=== PATIENT | male | born 1940 | race Caucasian/White ===

== ENCOUNTER 2019-08-08 03:31 | Inpatient (IN) | payer OTHER ==
[~2019-08-08] VITALS: Ht 182.9 cm; Wt 81.4 kg
[2019-08-08] MEDS ORDERED: DILTIAZEM 125 MG in SODIUM CHLORIDE 0.9% 100 ML IV SCH (03:41)
[2019-08-08] MEDS ORDERED: DILTIAZEM 5 MG/ML, 5ML ONE (03:52)
[2019-08-08] MEDS ORDERED: CEFTRIAXONE PMX 1GM/50ML 50 ML IVPB ONE (04:00)
[2019-08-08] MEDS ORDERED: SODIUM CHLORIDE FLUSH 10ML SYR IVF ONE (04:00)
[2019-08-08] MEDS ORDERED: DILTIAZEM 5 MG/ML, 5ML IV ONE (04:00)
[2019-08-08] MEDS ORDERED: AZITHROMYCIN 500 MG in SODIUM CHLORIDE 0.9% 250 ML IV ONE (04:00)
[2019-08-08 04:01] LABS: BASOPHILS # (AUTO) 0.02 x10^3/uL (0-0.1); BASOPHILS % (AUTO) 0 % (0-1); EOSINOPHILS % (AUTO) 4 % (1-7); LYMPHOCYTES # (AUTO) 0.93 x10^3/uL (1-3.4); LYMPHOCYTES % (AUTO) 12 % (22-44); MD NO; MEAN CORPUSCULAR HEMOGLOBIN 32.9 pg (27.5-34.5); MEAN CORPUSCULAR HGB CONC 33.1 g/dL (33.2-36.2); MEAN CORPUSCULAR VOLUME 99.6 fL (81-97); MEAN PLATELET VOLUME 8.9 fL (7.4-10.4); MONOCYTES % (AUTO) 15 % (2-9); NEUTROPHILS # (AUTO) 5.69 x10^3/uL (1.8-6.8); NEUTROPHILS % (AUTO) 70 % (42-75); PLATELET COUNT 197 x10^3/uL (130-400); RED BLOOD COUNT 4.43 x10^6/uL (4.38-5.82)
--- NOTE | 2019-08-08 04:06 | NUR ---
cardizem ivp per md order pt hr slowed to 80 a fib
[2019-08-08 04:08] LABS: INTERNATIONAL NORMALIZED RATIO 1.14 (0.93-1.1); PROTHROMBIN TIME 11.9 Seconds (9.6-11.5)
[2019-08-08 04:10] LABS: ALANINE AMINOTRANSFERASE 29 U/L (12-78); ALBUMIN 3.3 g/dL (3.4-5.0); ANION GAP 7 mmol/L (5-15); CALCIUM 9.3 mg/dL (8.5-10.1); CHLORIDE 99 mmol/L (98-107); CREATININE 1.14 mg/dL (0.7-1.3)
[2019-08-08] MEDS ORDERED: CEFTRIAXONE PMX 1GM/50ML 50 ML ONE (04:12)
[2019-08-08 04:14] LABS: ALKALINE PHOSPHATASE 173 U/L (45-117); BILIRUBIN,TOTAL 1.9 mg/dL (0.2-1.0); TOTAL PROTEIN 7.6 g/dL (6.4-8.2); TROPONIN I < 0.015 ng/mL (0.000-0.045)
[2019-08-08] MEDS ORDERED: FUROSEMIDE 40 MG/4 ML ONE (04:56)
[2019-08-08] MEDS ORDERED: FUROSEMIDE 40 MG/4 ML IV ONE (05:00)
--- NOTE | 2019-08-08 05:12 | NUR ---
pt sat 89% on hi flow o2 at 100% 45l, pt to be placed on bipap at this time
--- NOTE | 2019-08-08 05:13 | NUR ---
awaiting admit to icu
--- NOTE | 2019-08-08 05:30 | NUR ---
PT WAS NOT PLACED ON BIPAP. RESP TH TO MONITOR NEED PT SATS 89 TO 93% ON CURRENT HIFLOW NC
--- NOTE | 2019-08-08 06:38 | NUR ---
REPORT TO [facility] PT TO CCU WITH THIS RN AND TECH ON MONITOR
[2019-08-08] MEDS ORDERED: FUROSEMIDE 20 MG/2 ML IV SCH (08:00)
[2019-08-08] MEDS ORDERED: BISACODYL 10 MG SUPP PR PRN (08:00)
[2019-08-08] MEDS ORDERED: POLYETHYLENE GLYCOL 17 GM PACKET PO PRN (08:00)
[2019-08-08] MEDS ORDERED: ONDANSETRON 2MG/ML, 2ML IVPush PRN (08:00)
[2019-08-08] MEDS ORDERED: ENALAPRILAT 1.25 MG/ML, 2ML IVPush PRN (08:00)
[2019-08-08] MEDS ORDERED: ACETAMINOPHEN 325 MG TABLET PO PRN (08:00)
[2019-08-08] MEDS ORDERED: LABETALOL 5MG/ML, 20ML IVPush PRN (08:00)
[2019-08-08] MEDS: SENNA/DOCUSATE TABLET PO SCH (08:40)
[2019-08-08] MEDS: ENOXAPARIN 40 MG/0.4 ML SQ SCH (08:40)
[2019-08-08] MEDS: POTASSIUM CHLORIDE 20 MEQ TAB.ER.PRT PO SCH ×2 (08:40→16:36)
[2019-08-08 08:55] LABS: TROPONIN I < 0.015 ng/mL (0.000-0.045)
[2019-08-08] MEDS ORDERED: TAMSULOSIN 0.4 MG CAP.ER.24H PO ONE (10:00)
[2019-08-08] MEDS: NOREPINEPHRINE 4 MG in SODIUM CHLORIDE 0.9% 246 ML IV PRN ×3 (10:38→20:00)
[2019-08-08] MEDS: AZITHROMYCIN 500 MG in SODIUM CHLORIDE 0.9% 250 ML IV SCH (10:46)
[2019-08-08] MEDS: CEFTRIAXONE PMX 1GM/50ML 50 ML IV SCH (10:46)
[2019-08-08] MEDS: FINASTERIDE 5 MG TABLET PO SCH (10:47)
[2019-08-08] MEDS: ALBUTEROL/IPRATROPIUM 2.5MG/0.5MG, 3 ML NPPB SCH ×4 (11:35→23:13)
[2019-08-08] MEDS ORDERED: TIOT18CA INH (11:38)
[2019-08-08] MEDS ORDERED: BUDE0.5A INH (11:53)
[2019-08-08] MEDS ORDERED: ALBU90AE INH (11:53)
[2019-08-08 11:55] LABS: MICROSCOPIC AUTO
[2019-08-08] MEDS ORDERED: TAMS-11 PO (11:56)
[2019-08-08] MEDS ORDERED: FINA5TAB4 PO (11:56)
[2019-08-08] MEDS ORDERED: CARV3.1212 PO (11:56)
[2019-08-08] MEDS ORDERED: SPIR25TA5 PO (11:56)
[2019-08-08] MEDS ORDERED: ATOR20TA PO (11:56)
[2019-08-08] MEDS ORDERED: ASPI-496 PO (11:56)
[2019-08-08 12:01] LABS: CULTURE INDICATED? YES
[2019-08-08 13:52] LABS: TROPONIN I < 0.015 ng/mL (0.000-0.045)
[2019-08-08] MEDS: BUDESONIDE 0.5 MG/2 ML INHA INH SCH (19:06)
[2019-08-08] MEDS: BUDESONIDE 0.5 MG/2 ML INHA NPPB SCH (19:06)
[2019-08-08] MEDS: ATORVASTATIN 20 MG TABLET PO SCH (20:55)
[2019-08-09] MEDS: DOCUSATE 100 MG CAPSULE PO SCH ×2 (00:11→20:22)
[2019-08-09] MEDS: NOREPINEPHRINE 4 MG in SODIUM CHLORIDE 0.9% 246 ML IV PRN ×4 (00:44→17:41)
[2019-08-09] MEDS: ALBUTEROL/IPRATROPIUM 2.5MG/0.5MG, 3 ML NPPB SCH ×6 (03:13→19:42)
[2019-08-09 04:00] VITALS: BP 109/77
[2019-08-09 04:50] LABS: BASOPHILS # (AUTO) 0.02 x10^3/uL (0-0.1); BASOPHILS % (AUTO) 0 % (0-1); EOSINOPHILS # (AUTO) 0.01 x10^3/uL (0-0.4); EOSINOPHILS % (AUTO) 0 % (1-7); LYMPHOCYTES # (AUTO) 0.65 x10^3/uL (1-3.4); LYMPHOCYTES % (AUTO) 5 % (22-44); MD NO; MEAN CORPUSCULAR HEMOGLOBIN 32.2 pg (27.5-34.5); MEAN CORPUSCULAR HGB CONC 32.5 g/dL (33.2-36.2); MEAN CORPUSCULAR VOLUME 98.9 fL (81-97); MEAN PLATELET VOLUME 8.8 fL (7.4-10.4); MONOCYTES # (AUTO) 0.99 x10^3/uL (0.2-0.8); MONOCYTES % (AUTO) 7 % (2-9); NEUTROPHILS # (AUTO) 12.72 x10^3/uL (1.8-6.8); NEUTROPHILS % (AUTO) 88 % (42-75); PLATELET COUNT 243 x10^3/uL (130-400); RED BLOOD COUNT 4.17 x10^6/uL (4.38-5.82); RED CELL DISTRIBUTION WIDTH 13.7 % (9.4-14.8)
[2019-08-09 04:51] LABS: ALBUMIN 2.9 g/dL (3.4-5.0); ANION GAP 8 mmol/L (5-15); CALCIUM 8.9 mg/dL (8.5-10.1); CHLORIDE 103 mmol/L (98-107)
[2019-08-09 04:54] LABS: ALANINE AMINOTRANSFERASE 24 U/L (12-78); ALKALINE PHOSPHATASE 134 U/L (45-117); BILIRUBIN,TOTAL 0.9 mg/dL (0.2-1.0); CREATININE 1.08 mg/dL (0.7-1.3); TOTAL PROTEIN 6.7 g/dL (6.4-8.2)
[2019-08-09] MEDS: BUDESONIDE 0.5 MG/2 ML INHA NPPB SCH ×2 (07:00→19:42)
[2019-08-09] MEDS: ASPIRIN 81 MG TABLET EC PO SCH (07:20)
[2019-08-09] MEDS: FUROSEMIDE 100 MG in SODIUM CHLORIDE 0.9% 90 ML IV SCH (10:05)
[2019-08-09] MEDS: POTASSIUM CHLORIDE 20 MEQ TAB.ER.PRT PO SCH ×2 (10:10→17:39)
[2019-08-09] MEDS: SENNA/DOCUSATE TABLET PO SCH (10:11)
[2019-08-09] MEDS: TAMSULOSIN 0.4 MG CAP.ER.24H PO SCH (10:11)
[2019-08-09] MEDS: ENOXAPARIN 40 MG/0.4 ML SQ SCH (10:12)
[2019-08-09] MEDS: FINASTERIDE 5 MG TABLET PO SCH (10:14)
[2019-08-09] MEDS: BUDESONIDE 0.5 MG/2 ML INHA INH SCH (10:25)
[2019-08-09] MEDS: CEFTRIAXONE PMX 1GM/50ML 50 ML IV SCH (10:48)
[2019-08-09] MEDS: AZITHROMYCIN 500 MG in SODIUM CHLORIDE 0.9% 250 ML IV SCH (10:48)
[2019-08-09] MEDS ORDERED: ALBUMIN HUMAN 25% 100 ML IV ONE (14:30)
[2019-08-09] MEDS: ATORVASTATIN 20 MG TABLET PO SCH (20:22)
[2019-08-10] MEDS: NOREPINEPHRINE 4 MG in SODIUM CHLORIDE 0.9% 246 ML IV PRN ×3 (00:32→14:49)
[2019-08-10] MEDS ORDERED: DILTIAZEM 5 MG/ML, 5ML ONE (00:52)
[2019-08-10] MEDS ORDERED: DILTIAZEM 5 MG/ML, 5ML IVPush ONE (00:55)
[2019-08-10] MEDS: ALBUTEROL/IPRATROPIUM 2.5MG/0.5MG, 3 ML NPPB SCH ×7 (03:30→23:02)
[2019-08-10 04:00] VITALS: BP 104/55
[2019-08-10] MEDS: ASPIRIN 81 MG TABLET EC PO SCH (04:31)
[2019-08-10] MEDS: BUDESONIDE 0.5 MG/2 ML INHA NPPB SCH ×2 (07:10→18:28)
[2019-08-10 08:02] LABS: BASOPHILS # (AUTO) 0.03 x10^3/uL (0-0.1); BASOPHILS % (AUTO) 0 % (0-1); EOSINOPHILS # (AUTO) 0.36 x10^3/uL (0-0.4); EOSINOPHILS % (AUTO) 3 % (1-7); LYMPHOCYTES # (AUTO) 1.09 x10^3/uL (1-3.4); LYMPHOCYTES % (AUTO) 8 % (22-44); MD NO; MEAN CORPUSCULAR HEMOGLOBIN 32.2 pg (27.5-34.5); MEAN CORPUSCULAR HGB CONC 32.7 g/dL (33.2-36.2); MEAN CORPUSCULAR VOLUME 98.4 fL (81-97); MEAN PLATELET VOLUME 8.5 fL (7.4-10.4); MONOCYTES # (AUTO) 1.04 x10^3/uL (0.2-0.8); MONOCYTES % (AUTO) 8 % (2-9); NEUTROPHILS # (AUTO) 11.05 x10^3/uL (1.8-6.8); NEUTROPHILS % (AUTO) 82 % (42-75); PLATELET COUNT 248 x10^3/uL (130-400); RED BLOOD COUNT 4.27 x10^6/uL (4.38-5.82); RED CELL DISTRIBUTION WIDTH 14.2 % (9.4-14.8)
[2019-08-10 08:14] LABS: ANION GAP 5 mmol/L (5-15); CALCIUM 8.8 mg/dL (8.5-10.1); CHLORIDE 103 mmol/L (98-107); CREATININE 1.04 mg/dL (0.7-1.3)
[2019-08-10] MEDS: POTASSIUM CHLORIDE 20 MEQ TAB.ER.PRT PO SCH ×2 (08:37→15:44)
[2019-08-10] MEDS: SENNA/DOCUSATE TABLET PO SCH (08:38)
[2019-08-10] MEDS: TAMSULOSIN 0.4 MG CAP.ER.24H PO SCH (08:38)
[2019-08-10] MEDS: ENOXAPARIN 40 MG/0.4 ML SQ SCH (08:38)
[2019-08-10] MEDS: MIDODRINE 5 MG TABLET PO SCH ×3 (08:41→20:45)
[2019-08-10] MEDS: FINASTERIDE 5 MG TABLET PO SCH (08:41)
[2019-08-10] MEDS: AZITHROMYCIN 500 MG in SODIUM CHLORIDE 0.9% 250 ML IV SCH (10:54)
[2019-08-10] MEDS: CEFTRIAXONE PMX 1GM/50ML 50 ML IV SCH (10:54)
[2019-08-10] MEDS ORDERED: DIGOXIN 0.25 MG/ML, 2ML IVPush ONE (15:30)
[2019-08-10] MEDS ORDERED: GUAIFENESIN/DM 200-20MG, 10ML UDC PO PRN (19:30)
[2019-08-10] MEDS: DIGOXIN 0.25 MG/ML, 2ML IVPush SCH (20:43)
[2019-08-10] MEDS: ATORVASTATIN 20 MG TABLET PO SCH (20:44)
[2019-08-10] MEDS: DOCUSATE 100 MG CAPSULE PO SCH (20:44)
[2019-08-11] MEDS: NOREPINEPHRINE 4 MG in SODIUM CHLORIDE 0.9% 246 ML IV PRN (02:16)
[2019-08-11] MEDS: GABAPENTIN 100 MG CAPSULE PO SCH ×4 (02:48→20:46)
[2019-08-11] MEDS: ALBUTEROL/IPRATROPIUM 2.5MG/0.5MG, 3 ML NPPB SCH ×6 (03:05→23:00)
[2019-08-11 04:02] VITALS: BP 133/54
[2019-08-11] MEDS: DIGOXIN 0.25 MG/ML, 2ML IVPush SCH (05:04)
[2019-08-11] MEDS: FUROSEMIDE 100 MG in SODIUM CHLORIDE 0.9% 90 ML IV SCH (05:05)
[2019-08-11] MEDS: ASPIRIN 81 MG TABLET EC PO SCH (05:54)
[2019-08-11 06:08] LABS: ANION GAP 4 mmol/L (5-15); CALCIUM 8.6 mg/dL (8.5-10.1); CHLORIDE 101 mmol/L (98-107)
[2019-08-11 06:12] LABS: BASOPHILS # (AUTO) 0.01 x10^3/uL (0-0.1); BASOPHILS % (AUTO) 0 % (0-1); EOSINOPHILS # (AUTO) 0.39 x10^3/uL (0-0.4); EOSINOPHILS % (AUTO) 4 % (1-7); LYMPHOCYTES # (AUTO) 0.62 x10^3/uL (1-3.4); LYMPHOCYTES % (AUTO) 7 % (22-44); MD NO; MEAN CORPUSCULAR HEMOGLOBIN 32.9 pg (27.5-34.5); MEAN CORPUSCULAR HGB CONC 32.9 g/dL (33.2-36.2); MEAN PLATELET VOLUME 8.6 fL (7.4-10.4); MONOCYTES # (AUTO) 0.78 x10^3/uL (0.2-0.8); MONOCYTES % (AUTO) 9 % (2-9); NEUTROPHILS # (AUTO) 7.31 x10^3/uL (1.8-6.8); NEUTROPHILS % (AUTO) 80 % (42-75); PLATELET COUNT 204 x10^3/uL (130-400); RED CELL DISTRIBUTION WIDTH 14.2 % (9.4-14.8)
[2019-08-11] MEDS ORDERED: GUAIFENESIN/DM 200-20MG, 10ML UDC PO PRN (08:30)
[2019-08-11] MEDS: SENNA/DOCUSATE TABLET PO SCH (09:31)
[2019-08-11] MEDS: FINASTERIDE 5 MG TABLET PO SCH (09:31)
[2019-08-11] MEDS: ENOXAPARIN 40 MG/0.4 ML SQ SCH (09:31)
[2019-08-11] MEDS: POTASSIUM CHLORIDE 20 MEQ TAB.ER.PRT PO SCH ×2 (09:31→16:17)
[2019-08-11] MEDS: MIDODRINE 5 MG TABLET PO SCH ×3 (09:32→20:43)
[2019-08-11] MEDS: TAMSULOSIN 0.4 MG CAP.ER.24H PO SCH (09:32)
[2019-08-11] MEDS: BUDESONIDE 0.5 MG/2 ML INHA NPPB SCH ×2 (11:01→19:17)
[2019-08-11] MEDS: CEFTRIAXONE PMX 1GM/50ML 50 ML IV SCH (11:01)
[2019-08-11] MEDS: AZITHROMYCIN 500 MG in SODIUM CHLORIDE 0.9% 250 ML IV SCH (11:59)
[2019-08-11] MEDS ORDERED: FUROSEMIDE 100 MG in SODIUM CHLORIDE 0.9% 90 ML IV SCH (12:00)
[2019-08-11] MEDS: ATORVASTATIN 20 MG TABLET PO SCH (20:43)
[2019-08-11] MEDS: DOCUSATE 100 MG CAPSULE PO SCH (20:43)
[2019-08-11] MEDS ORDERED: LACTULOSE 10 GM/15 ML UDC ONE (23:54)
[2019-08-11] MEDS: LACTULOSE 10 GM/15 ML UDC PO PRN (23:55)
[2019-08-12] MEDS: ALBUTEROL/IPRATROPIUM 2.5MG/0.5MG, 3 ML NPPB SCH ×6 (03:18→23:07)
[2019-08-12 04:08] VITALS: BP 84/54
[2019-08-12 05:31] LABS: ANION GAP 5 mmol/L (5-15); CALCIUM 8.4 mg/dL (8.5-10.1); CHLORIDE 97 mmol/L (98-107)
[2019-08-12] MEDS: ASPIRIN 81 MG TABLET EC PO SCH (05:55)
[2019-08-12] MEDS: BUDESONIDE 0.5 MG/2 ML INHA NPPB SCH ×2 (06:42→23:07)
[2019-08-12] MEDS: ENOXAPARIN 40 MG/0.4 ML SQ SCH (08:03)
[2019-08-12] MEDS: POTASSIUM CHLORIDE 20 MEQ TAB.ER.PRT PO SCH ×2 (08:03→16:36)
[2019-08-12] MEDS: GABAPENTIN 100 MG CAPSULE PO SCH ×3 (09:00→21:02)
[2019-08-12] MEDS: TAMSULOSIN 0.4 MG CAP.ER.24H PO SCH (09:14)
[2019-08-12] MEDS: MIDODRINE 5 MG TABLET PO SCH ×3 (09:14→21:03)
[2019-08-12] MEDS: SENNA/DOCUSATE TABLET PO SCH (09:14)
[2019-08-12] MEDS: FUROSEMIDE 20 MG TABLET PO SCH ×2 (10:17→21:12)
[2019-08-12] MEDS: FINASTERIDE 5 MG TABLET PO SCH (10:17)
[2019-08-12] MEDS: CEFTRIAXONE PMX 1GM/50ML 50 ML IV SCH (11:02)
[2019-08-12] MEDS: AZITHROMYCIN 500 MG in SODIUM CHLORIDE 0.9% 250 ML IV SCH (11:42)
[2019-08-12] MEDS: LACTULOSE 10 GM/15 ML UDC PO PRN (12:30)
[2019-08-12 17:18] VITALS: BP 108/74
[2019-08-12 18:57] VITALS: BP 92/58
[2019-08-12 20:58] VITALS: BP 100/60
[2019-08-12] MEDS: DOCUSATE 100 MG CAPSULE PO SCH (21:01)
[2019-08-12] MEDS: ATORVASTATIN 20 MG TABLET PO SCH (21:02)
[2019-08-13 01:51] VITALS: BP 97/62
[2019-08-13] MEDS ORDERED: FAMOTIDINE 20 MG TABLET PO PRN (02:00)
[2019-08-13] MEDS: ALBUTEROL/IPRATROPIUM 2.5MG/0.5MG, 3 ML NPPB SCH ×6 (03:00→22:33)
[2019-08-13] MEDS: ASPIRIN 81 MG TABLET EC PO SCH (05:12)
[2019-08-13] MEDS: MEROPENEM 500 MG in SODIUM CHLORIDE 0.9% 100 ML IV SCH ×3 (06:29→23:08)
[2019-08-13] MEDS: BUDESONIDE 0.5 MG/2 ML INHA NPPB SCH ×2 (06:37→21:00)
[2019-08-13 07:38] VITALS: BP 98/62
[2019-08-13 07:59] LABS: BASOPHILS # (AUTO) 0.04 x10^3/uL (0-0.1); BASOPHILS % (AUTO) 1 % (0-1); EOSINOPHILS # (AUTO) 0.51 x10^3/uL (0-0.4); EOSINOPHILS % (AUTO) 6 % (1-7); LYMPHOCYTES # (AUTO) 0.78 x10^3/uL (1-3.4); LYMPHOCYTES % (AUTO) 8 % (22-44); MD NO; MEAN CORPUSCULAR HEMOGLOBIN 31.8 pg (27.5-34.5); MEAN CORPUSCULAR HGB CONC 32.2 g/dL (33.2-36.2); MEAN CORPUSCULAR VOLUME 98.8 fL (81-97); MEAN PLATELET VOLUME 8.3 fL (7.4-10.4); MONOCYTES # (AUTO) 0.87 x10^3/uL (0.2-0.8); MONOCYTES % (AUTO) 9 % (2-9); NEUTROPHILS # (AUTO) 7.06 x10^3/uL (1.8-6.8); NEUTROPHILS % (AUTO) 76 % (42-75); PLATELET COUNT 239 x10^3/uL (130-400); RED BLOOD COUNT 4.29 x10^6/uL (4.38-5.82); RED CELL DISTRIBUTION WIDTH 14.3 % (9.4-14.8)
[2019-08-13 08:11] LABS: ANION GAP 8 mmol/L (5-15); CALCIUM 8.7 mg/dL (8.5-10.1); CHLORIDE 99 mmol/L (98-107); CREATININE 1.11 mg/dL (0.7-1.3)
[2019-08-13] MEDS: FUROSEMIDE 20 MG TABLET PO SCH ×2 (08:35→21:07)
[2019-08-13] MEDS: ENOXAPARIN 40 MG/0.4 ML SQ SCH (08:36)
[2019-08-13] MEDS: TAMSULOSIN 0.4 MG CAP.ER.24H PO SCH (08:37)
[2019-08-13] MEDS: SENNA/DOCUSATE TABLET PO SCH (08:37)
[2019-08-13] MEDS: GABAPENTIN 100 MG CAPSULE PO SCH ×3 (08:37→21:07)
[2019-08-13] MEDS: POTASSIUM CHLORIDE 20 MEQ TAB.ER.PRT PO SCH ×2 (08:37→16:56)
[2019-08-13] MEDS: MIDODRINE 5 MG TABLET PO SCH ×3 (08:38→21:08)
[2019-08-13] MEDS: FINASTERIDE 5 MG TABLET PO SCH (08:38)
[2019-08-13] MEDS: AZITHROMYCIN 500 MG in SODIUM CHLORIDE 0.9% 250 ML IV SCH (11:36)
[2019-08-13 14:52] VITALS: BP 102/65
[2019-08-13] MEDS: DOCUSATE 100 MG CAPSULE PO SCH (21:07)
[2019-08-13] MEDS: ATORVASTATIN 20 MG TABLET PO SCH (21:07)
[2019-08-13 21:45] VITALS: BP 99/57
[2019-08-14 02:30] VITALS: BP 100/55
[2019-08-14 03:15] VITALS: BP 101/59
[2019-08-14] MEDS: ALBUTEROL/IPRATROPIUM 2.5MG/0.5MG, 3 ML NPPB SCH ×6 (03:26→22:55)
[2019-08-14 05:35] LABS: ANION GAP 4 mmol/L (5-15); CALCIUM 8.5 mg/dL (8.5-10.1); CHLORIDE 103 mmol/L (98-107)
[2019-08-14 05:37] LABS: CREATININE 0.96 mg/dL (0.7-1.3)
[2019-08-14] MEDS: ASPIRIN 81 MG TABLET EC PO SCH (06:05)
[2019-08-14] MEDS: MEROPENEM 500 MG in SODIUM CHLORIDE 0.9% 100 ML IV SCH ×3 (06:05→22:40)
[2019-08-14] MEDS: BUDESONIDE 0.5 MG/2 ML INHA NPPB SCH ×2 (06:27→19:25)
[2019-08-14 07:58] VITALS: BP 98/62
[2019-08-14] MEDS: POTASSIUM CHLORIDE 20 MEQ TAB.ER.PRT PO SCH ×2 (09:13→16:39)
[2019-08-14] MEDS: GABAPENTIN 100 MG CAPSULE PO SCH ×3 (09:13→20:43)
[2019-08-14] MEDS: MIDODRINE 5 MG TABLET PO SCH ×3 (09:14→20:43)
[2019-08-14] MEDS: FUROSEMIDE 20 MG TABLET PO SCH (09:14)
[2019-08-14] MEDS: FINASTERIDE 5 MG TABLET PO SCH (09:30)
[2019-08-14] MEDS: TAMSULOSIN 0.4 MG CAP.ER.24H PO SCH (09:30)
[2019-08-14] MEDS: ENOXAPARIN 40 MG/0.4 ML SQ SCH (09:30)
[2019-08-14] MEDS: LINEZOLID 600 MG TABLET PO SCH ×2 (12:33→20:43)
[2019-08-14] MEDS: FUROSEMIDE 20 MG/2 ML IV SCH (16:39)
[2019-08-14] MEDS: SENNA/DOCUSATE TABLET PO SCH (16:48)
[2019-08-14] MEDS: ATORVASTATIN 20 MG TABLET PO SCH (20:43)
[2019-08-14] MEDS: DOCUSATE 100 MG CAPSULE PO SCH (20:43)
[2019-08-14 20:47] VITALS: BP 85/51
[2019-08-15 01:39] VITALS: BP 104/66
[2019-08-15] MEDS: ALBUTEROL/IPRATROPIUM 2.5MG/0.5MG, 3 ML NPPB SCH ×5 (03:00→19:14)
[2019-08-15 05:49] LABS: BASOPHILS # (AUTO) 0.04 x10^3/uL (0-0.1); BASOPHILS % (AUTO) 1 % (0-1); EOSINOPHILS # (AUTO) 0.66 x10^3/uL (0-0.4); EOSINOPHILS % (AUTO) 8 % (1-7); LYMPHOCYTES # (AUTO) 0.83 x10^3/uL (1-3.4); LYMPHOCYTES % (AUTO) 10 % (22-44); MD NO; MEAN CORPUSCULAR HGB CONC 32.6 g/dL (33.2-36.2); MEAN PLATELET VOLUME 8.1 fL (7.4-10.4); MONOCYTES # (AUTO) 1.13 x10^3/uL (0.2-0.8); MONOCYTES % (AUTO) 14 % (2-9); NEUTROPHILS # (AUTO) 5.52 x10^3/uL (1.8-6.8); NEUTROPHILS % (AUTO) 68 % (42-75); PLATELET COUNT 249 x10^3/uL (130-400); RED BLOOD COUNT 3.84 x10^6/uL (4.38-5.82); RED CELL DISTRIBUTION WIDTH 14.2 % (9.4-14.8)
[2019-08-15 05:55] LABS: ANION GAP 4 mmol/L (5-15); CALCIUM 8.5 mg/dL (8.5-10.1); CHLORIDE 100 mmol/L (98-107); CREATININE 1.03 mg/dL (0.7-1.3)
[2019-08-15] MEDS: MEROPENEM 500 MG in SODIUM CHLORIDE 0.9% 100 ML IV SCH ×3 (06:30→17:07)
[2019-08-15] MEDS: ASPIRIN 81 MG TABLET EC PO SCH ×2 (06:30→06:52)
[2019-08-15 07:20] VITALS: BP 100/63
[2019-08-15] MEDS: BUDESONIDE 0.5 MG/2 ML INHA NPPB SCH ×2 (07:20→19:14)
[2019-08-15] MEDS: METOLAZONE 2.5 MG TABLET PO SCH ×2 (07:44→16:01)
[2019-08-15] MEDS: TAMSULOSIN 0.4 MG CAP.ER.24H PO SCH ×2 (09:00→09:05)
[2019-08-15] MEDS: GABAPENTIN 100 MG CAPSULE PO SCH ×3 (09:00→16:01)
[2019-08-15] MEDS: SENNA/DOCUSATE TABLET PO SCH (09:04)
[2019-08-15] MEDS: LINEZOLID 600 MG TABLET PO SCH ×2 (09:10→20:45)
[2019-08-15] MEDS: POTASSIUM CHLORIDE 20 MEQ TAB.ER.PRT PO SCH ×2 (09:10→17:07)
[2019-08-15] MEDS: MIDODRINE 5 MG TABLET PO SCH ×3 (09:10→20:45)
[2019-08-15] MEDS: FINASTERIDE 5 MG TABLET PO SCH (09:11)
[2019-08-15] MEDS: ENOXAPARIN 40 MG/0.4 ML SQ SCH (09:11)
[2019-08-15] MEDS: FUROSEMIDE 20 MG/2 ML IV SCH ×2 (09:12→17:07)
[2019-08-15 09:26] VITALS: BP 103/63
[2019-08-15 14:05] VITALS: BP 106/68
[2019-08-15 17:09] VITALS: BP 113/62
[2019-08-15 19:41] VITALS: BP 100/52
[2019-08-15] MEDS: DOCUSATE 100 MG CAPSULE PO SCH (20:45)
[2019-08-15] MEDS: ATORVASTATIN 20 MG TABLET PO SCH (20:46)
[2019-08-16] VITALS (8 sets, daily range): BP systolic 88–106; BP diastolic 60–74
[2019-08-16] MEDS: MEROPENEM 500 MG in SODIUM CHLORIDE 0.9% 100 ML IV SCH ×3 (01:40→17:58)
[2019-08-16] MEDS: ASPIRIN 81 MG TABLET EC PO SCH (05:37)
[2019-08-16 06:12] LABS: ANION GAP 6 mmol/L (5-15); CALCIUM 9.3 mg/dL (8.5-10.1); CHLORIDE 98 mmol/L (98-107); CREATININE 1.17 mg/dL (0.7-1.3)
[2019-08-16] MEDS: BUDESONIDE 0.5 MG/2 ML INHA NPPB SCH ×2 (06:35→19:45)
[2019-08-16] MEDS: ALBUTEROL/IPRATROPIUM 2.5MG/0.5MG, 3 ML NPPB SCH ×4 (06:35→19:44)
[2019-08-16] MEDS: METOLAZONE 2.5 MG TABLET PO SCH ×2 (07:47→16:14)
[2019-08-16] MEDS: FUROSEMIDE 20 MG/2 ML IV SCH ×3 (07:47→20:45)
[2019-08-16] MEDS: POTASSIUM CHLORIDE 20 MEQ TAB.ER.PRT PO SCH ×2 (07:47→16:14)
[2019-08-16] MEDS: MIDODRINE 5 MG TABLET PO SCH ×3 (08:47→20:45)
[2019-08-16] MEDS: SENNA/DOCUSATE TABLET PO SCH (08:48)
[2019-08-16] MEDS: ENOXAPARIN 40 MG/0.4 ML SQ SCH (08:48)
[2019-08-16] MEDS: TAMSULOSIN 0.4 MG CAP.ER.24H PO SCH (08:48)
[2019-08-16] MEDS: LINEZOLID 600 MG TABLET PO SCH ×2 (08:48→20:45)
[2019-08-16] MEDS: FINASTERIDE 5 MG TABLET PO SCH (09:05)
[2019-08-16] MEDS ORDERED: ALBUTEROL SULFATE 2.5 MG/3 ML ONE (14:56)
[2019-08-16] MEDS ORDERED: ALBUTEROL SULFATE 2.5 MG/3 ML NPPB PRN (15:00)
[2019-08-16] MEDS ORDERED: FUROSEMIDE 20 MG/2 ML IV SCH (17:00)
[2019-08-16] MEDS ORDERED: TRAZODONE 50MG TABLET PO PRN (17:00)
[2019-08-16] MEDS: ATORVASTATIN 20 MG TABLET PO SCH (20:44)
[2019-08-16] MEDS: APIXABAN 5 MG TABLET PO SCH (20:45)
[2019-08-16] MEDS: DOCUSATE 100 MG CAPSULE PO SCH (20:45)
[2019-08-17 01:45] VITALS: BP 118/79
[2019-08-17] MEDS: MEROPENEM 500 MG in SODIUM CHLORIDE 0.9% 100 ML IV SCH ×3 (01:53→17:04)
[2019-08-17 05:42] LABS: ANION GAP 4 mmol/L (5-15); CALCIUM 9.3 mg/dL (8.5-10.1); CHLORIDE 96 mmol/L (98-107)
[2019-08-17 05:43] LABS: CREATININE 1.25 mg/dL (0.7-1.3)
[2019-08-17] MEDS: METOLAZONE 2.5 MG TABLET PO SCH (07:57)
[2019-08-17] MEDS: POTASSIUM CHLORIDE 20 MEQ TAB.ER.PRT PO SCH ×2 (07:57→17:02)
[2019-08-17] MEDS: ALBUTEROL/IPRATROPIUM 2.5MG/0.5MG, 3 ML NPPB SCH ×2 (08:00→19:02)
[2019-08-17] MEDS: BUDESONIDE 0.5 MG/2 ML INHA NPPB SCH ×2 (08:00→19:02)
[2019-08-17 08:06] VITALS: BP 93/63
[2019-08-17] MEDS: SENNA/DOCUSATE TABLET PO SCH (09:00)
[2019-08-17] MEDS: MIDODRINE 5 MG TABLET PO SCH ×3 (09:38→20:23)
[2019-08-17] MEDS: LINEZOLID 600 MG TABLET PO SCH (09:38)
[2019-08-17] MEDS: TAMSULOSIN 0.4 MG CAP.ER.24H PO SCH (09:39)
[2019-08-17] MEDS: FUROSEMIDE 20 MG/2 ML IV SCH ×3 (09:39→21:19)
[2019-08-17] MEDS: APIXABAN 5 MG TABLET PO SCH ×2 (09:39→20:23)
[2019-08-17] MEDS: FINASTERIDE 5 MG TABLET PO SCH (09:40)
[2019-08-17] MEDS: methylPREDNISolone SOD SUCC 40 MG/ML IV SCH ×2 (11:45→20:22)
[2019-08-17 12:50] VITALS: BP 103/71
[2019-08-17 19:00] VITALS: BP 99/63
[2019-08-17] MEDS: ATORVASTATIN 20 MG TABLET PO SCH (20:22)
[2019-08-17] MEDS: MELATONIN 3 MG TABLET PO SCH (20:23)
[2019-08-18 01:15] VITALS: BP 100/58
[2019-08-18] MEDS: MEROPENEM 500 MG in SODIUM CHLORIDE 0.9% 100 ML IV SCH ×3 (01:40→17:16)
[2019-08-18] MEDS: methylPREDNISolone SOD SUCC 40 MG/ML IV SCH ×3 (03:54→22:10)
[2019-08-18 05:35] LABS: MEAN CORPUSCULAR HEMOGLOBIN 31.9 pg (27.5-34.5); MEAN CORPUSCULAR HGB CONC 32.8 g/dL (33.2-36.2); MEAN CORPUSCULAR VOLUME 97.5 fL (81-97); MEAN PLATELET VOLUME 8.6 fL (7.4-10.4); PLATELET COUNT 333 x10^3/uL (130-400)
[2019-08-18 05:41] LABS: CHLORIDE 96 mmol/L (98-107)
[2019-08-18 05:51] LABS: ANION GAP 7 mmol/L (5-15); CALCIUM 9.3 mg/dL (8.5-10.1); CREATININE 1.51 mg/dL (0.7-1.3)
[2019-08-18 06:26] LABS: BASOPHILS % (AUTO) 0 % (0-1); EOSINOPHILS % (AUTO) 0 % (1-7); LYMPHOCYTES # (AUTO) 0.35 x10^3/uL (1-3.4); LYMPHOCYTES % (AUTO) 4 % (22-44); MD SCAN; MONOCYTES # (AUTO) 0.09 x10^3/uL (0.2-0.8); MONOCYTES % (AUTO) 1 % (2-9); NEUTROPHILS # (AUTO) 8.09 x10^3/uL (1.8-6.8); NEUTROPHILS % (AUTO) 95 % (42-75)
[2019-08-18] MEDS ORDERED: SODIUM CHLORIDE 0.9%, 250ML IVBOLUS ONE (06:30)
[2019-08-18 07:31] VITALS: BP 90/59
[2019-08-18] MEDS: ALBUTEROL/IPRATROPIUM 2.5MG/0.5MG, 3 ML NPPB SCH ×2 (07:47→20:18)
[2019-08-18] MEDS: BUDESONIDE 0.5 MG/2 ML INHA NPPB SCH ×2 (07:47→20:18)
[2019-08-18] MEDS: APIXABAN 5 MG TABLET PO SCH ×2 (08:47→22:10)
[2019-08-18] MEDS: TAMSULOSIN 0.4 MG CAP.ER.24H PO SCH (08:47)
[2019-08-18] MEDS: POTASSIUM CHLORIDE 20 MEQ TAB.ER.PRT PO SCH ×2 (08:47→17:16)
[2019-08-18] MEDS: MIDODRINE 5 MG TABLET PO SCH ×3 (08:48→22:10)
[2019-08-18] MEDS: FINASTERIDE 5 MG TABLET PO SCH (08:48)
[2019-08-18 15:12] VITALS: BP 85/52
[2019-08-18 15:20] VITALS: BP 95/63
[2019-08-18 16:56] VITALS: BP 95/68
[2019-08-18 20:01] VITALS: BP 94/52
[2019-08-18] MEDS: ATORVASTATIN 20 MG TABLET PO SCH (22:10)
[2019-08-18] MEDS: MELATONIN 3 MG TABLET PO SCH (22:10)
[2019-08-19 01:23] VITALS: BP 96/60
[2019-08-19] MEDS: MEROPENEM 500 MG in SODIUM CHLORIDE 0.9% 100 ML IV SCH ×2 (02:43→09:05)
[2019-08-19] MEDS: methylPREDNISolone SOD SUCC 40 MG/ML IV SCH (04:44)
[2019-08-19 06:44] VITALS: BP_SYST 70; BP_SYST 72; BP_DIAS 47; BP_DIAS 52
[2019-08-19 06:56] LABS: ANION GAP 4 mmol/L (5-15); CALCIUM 9.4 mg/dL (8.5-10.1); CHLORIDE 99 mmol/L (98-107); CREATININE 1.21 mg/dL (0.7-1.3)
[2019-08-19] MEDS ORDERED: POLY17PO5 PO (07:03)
[2019-08-19] MEDS ORDERED: MIDO5TAB9 PO (07:03)
[2019-08-19] MEDS ORDERED: MELA3TAB56 PO (07:03)
[2019-08-19] MEDS ORDERED: FAMO20TA7 PO (07:03)
[2019-08-19] MEDS ORDERED: APIX5TAB PO (07:03)
[2019-08-19] MEDS ORDERED: TRAZ50TA66 PO (07:03)
[2019-08-19 07:06] VITALS: BP 93/60
[2019-08-19] MEDS ORDERED: SODIUM CHLORIDE 0.9%, 500ML IVBOLUS ONE (07:30)
[2019-08-19] MEDS: APIXABAN 5 MG TABLET PO SCH (08:45)
[2019-08-19] MEDS: TAMSULOSIN 0.4 MG CAP.ER.24H PO SCH (08:45)
[2019-08-19] MEDS: MIDODRINE 5 MG TABLET PO SCH (08:45)
[2019-08-19] MEDS: FINASTERIDE 5 MG TABLET PO SCH (08:45)
[2019-08-19] MEDS: BUDESONIDE 0.5 MG/2 ML INHA NPPB SCH (09:00)
[2019-08-19] MEDS: ALBUTEROL/IPRATROPIUM 2.5MG/0.5MG, 3 ML NPPB SCH (09:00)
== END 2019-08-19 11:31 | DRG 871 ==
LOC: ED 05:14 → EDIP 05:20 → CCU 06:31 → 5SO 08-12 17:11
PROVIDERS: ADMIT Family Medicine; ATTEND Hospitalist
PROC: 02HV33Z Insertion of Infusion Device into Superior Vena Cava, Percutaneous Approach (ICD-10-PCS; principal; 2019-08-08)
PROC: B548ZZA Ultrasonography of Superior Vena Cava, Guidance (ICD-10-PCS; 2019-08-08)
PROC: 0T9B70Z Drainage of Bladder with Drainage Device, Via Natural or Artificial Opening (ICD-10-PCS; 2019-08-08)
DX: A41.52 Sepsis due to Pseudomonas (principal); I50.43 Acute on chronic combined systolic (congestive) and diastolic (congestive) heart failure; J15.1 Pneumonia due to Pseudomonas; J96.21 Acute and chronic respiratory failure with hypoxia; I48.92 Unspecified atrial flutter; J44.1 Chronic obstructive pulmonary disease with (acute) exacerbation; J44.0 Chronic obstructive pulmonary disease with (acute) lower respiratory infection; N17.9 Acute kidney failure, unspecified; I08.0 Rheumatic disorders of both mitral and aortic valves; I25.10 Atherosclerotic heart disease of native coronary artery without angina pectoris; I44.7 Left bundle-branch block, unspecified; I48.91 Unspecified atrial fibrillation; K40.90 Unilateral inguinal hernia, without obstruction or gangrene, not specified as recurrent; K58.9 Irritable bowel syndrome, unspecified; M70.51 Other bursitis of knee, right knee; N40.1 Benign prostatic hyperplasia with lower urinary tract symptoms; R33.8 Other retention of urine; T38.0X5A Adverse effect of glucocorticoids and synthetic analogues, initial encounter; Z96.643 Presence of artificial hip joint, bilateral; T50.2X5A Adverse effect of carbonic-anhydrase inhibitors, benzothiadiazides and other diuretics, initial encounter; Z82.49 Family history of ischemic heart disease and other diseases of the circulatory system; Z83.2 Family history of diseases of the blood and blood-forming organs and certain disorders involving the immune mechanism; Z87.891 Personal history of nicotine dependence; Z95.5 Presence of coronary angioplasty implant and graft; Z99.81 Dependence on supplemental oxygen
CPT/HCPCS: 36415; 36600; 96365; 96366; 96367; 96368; 96375; 99291; J7620; J7626; 36573; 71045; 71250; 80048; 80053; 81001; 82533; 82803; 83735; 83880; 84100; 84443; 84484; 85025; 85610; 85730; 87040; 87070; 87077; 87081; 87086; 87186; 87205; 93005; 93306; 94640; G0378; J0456; J0696; J1650; J1940; J2185; J2405; P9047; C1751; J1160; J2920; J7040; J7050